=== PATIENT | male | born 2000 ===

== ENCOUNTER 2021-01-24 18:09 | Emergency (ER) | payer OTHER ==
[~2021-01-24] VITALS: Ht 175.3 cm; Wt 225.0 kg
[2021-01-24] MEDS ORDERED: RISP1 PO (18:41)
[2021-01-24] MEDS ORDERED: VENL25 PO (18:41)
[2021-01-24] MEDS ORDERED: Ultram50 MG PO (22:19)
== END 2021-01-25 03:04 | disposition home or self-care (01) ==
LOC: ER 18:09
DX: S16.9XXA Unspecified injury of muscle, fascia and tendon at neck level, initial encounter (principal); M40.203 Unspecified kyphosis, cervicothoracic region; M43.13 Spondylolisthesis, cervicothoracic region; Z79.899 Other long term (current) drug therapy; V80.018A Animal-rider injured by fall from or being thrown from other animal in noncollision accident, initial encounter
CPT/HCPCS: 71260; 72125; 72128; 96374; 99283-25; A9270; J2270; Q9967